=== PATIENT | female | born 1990 | race Hispanic/Latino ===

== ENCOUNTER 2022-01-03 11:05 | Outpatient (CLI) | payer OTHER ==
[2022-01-03 21:27] LABS: SARS-CoV-2 PCR by NAA Not Detected (NotDetected)
== END 2022-01-03 11:06 | disposition home or self-care (01) ==
LOC: CSHLAB 11:05
PROVIDERS: ATTEND Advanced Practice Midwife
DX: Z20.822 Contact with and (suspected) exposure to COVID-19 (principal)
CPT/HCPCS: U0003; U0005

== ENCOUNTER 2022-01-04 12:37 | Inpatient (IN) | payer OTHER ==
[~2022-01-04 12:37] MED LIST: Bupivacaine 0.25% HCL 30 ML VIAL ONE; ePHEDrine Sulfate 50 MG/10 ML VIAL ONE
[2022-01-04] MEDS ORDERED: hydrALAZINE 20 MG/ML VIAL SLOW IVP PRN ×2 (12:55→12:56)
[2022-01-04] MEDS ORDERED: Lidocaine 1% (PF) 30 ML VIAL SC PRN ×2 (12:55→12:56)
[2022-01-04] MEDS ORDERED: Ondansetron PF 4 MG/2 ML Vial IVP PRN ×2 (12:55→12:56)
[2022-01-04] MEDS ORDERED: Promethazine HCl 25 MG/ML VIAL IM PRN ×2 (12:55→12:56)
[2022-01-04] MEDS ORDERED: HYDROcodone/Acetaminophen 5/325 mg Tablet PO PRN ×2 (12:56)
[2022-01-04] MEDS ORDERED: Acetaminophen 500 MG TAB PO PRN (12:56)
[2022-01-04] MEDS ORDERED: Carboprost 250 MCG/ML AMP IM PRN (12:56)
[2022-01-04] MEDS ORDERED: Methylergonovine 0.2 MG/ML VIAL IM PRN (12:56)
[2022-01-04] MEDS ORDERED: Misoprostol 200 MCG TAB PR PRN (12:56)
[2022-01-04] MEDS ORDERED: Diphenoxylate HCl/Atropine Tablet PO PRN (12:56)
[2022-01-04] MEDS ORDERED: Butorphanol Tartrate 1 MG/ML VIAL SLOW IVP PRN (12:56)
[2022-01-04] MEDS ORDERED: Ibuprofen 800 MG TAB PO PRN (12:56)
[2022-01-04] MEDS ORDERED: Penicillin G Potassium 5 MILL.UNITS in Sodium Chloride 0.9% 100 ML IVPB SCH (13:00)
[2022-01-04] MEDS ORDERED: NS w/ Oxytocin 30 units 500 ML IV SCH ×3 (13:00)
[2022-01-04] MEDS ORDERED: Penicillin G Potassium 5 MILL.UNITS VIAL ONE (13:16)
[2022-01-04] MEDS: Lactated Ringer's 1,000 ML IV SCH (13:30)
[2022-01-04] MEDS: Misoprostol 100 MCG TAB VAG SCH (13:31)
[2022-01-04 13:50] VITALS: BMI 32.1
[2022-01-04 14:10] LABS: Hemoglobin 9.4 g/dL (12.0-15.5); Mean Corpuscular HGB CONC 31.9 g/dL (32.0-36.0); Mean Corpuscular Hemoglobin 24.9 pg (27.0-33.0); Mean Corpuscular Volume 78.2 fl (81.6-98.3); Mean Platelet Volume 12.4 fl (7.4-10.4); Platelet Count 261 10x3/uL (150-450); RBC Distribution Width 13.9 % (11.5-14.5); Red Blood Cell (RBC) Count 3.77 10x6/uL (3.90-5.03); White Blood Cell (WBC) Count 6.1 10x3/uL (3.5-10.5)
[2022-01-04] MEDS ORDERED: Dextrose 5% in Water 1,000 ML IV PRN (14:41)
[2022-01-04] MEDS ORDERED: Dextrose 50% Abboject 50 ML SYRINGE SLOW IVP PRN (14:41)
[2022-01-04] MEDS ORDERED: HumaLOG 300 UNITS/3 ML VIAL SC PRN (14:41)
[2022-01-04 14:45] LABS: Syphilis Antibody Nonreactive (Nonreactive); Syphilis Antibody Index 0.04 S/CO (<1.00 Non-Reactive)
[2022-01-04 14:46] LABS: Hep B Surf Ag Non-Reactive S/CO (NonReactive)
[2022-01-04 14:53] LABS: HBSAg Index 0.15 S/CO (0-0.99)
[2022-01-04] MEDS: Penicillin G 2.5 MILL.units 2.5 MILL.UNITS in Premix Bag 1 BAG IVPB SCH ×3 (15:07→22:11)
[2022-01-05] MEDS: Terbutaline Sulfate 1 MG/ML VIAL ONE ×2 (00:41→01:56)
[2022-01-05] MEDS ORDERED: Fentanyl 2 mcg/Bup 0.1% Cadd 100 ML ONE ×2 (01:50→11:47)
[2022-01-05] MEDS: Lactated Ringer's 1,000 ML IV SCH (01:58)
[2022-01-05] MEDS: Penicillin G 2.5 MILL.units 2.5 MILL.UNITS in Premix Bag 1 BAG IVPB SCH ×3 (03:08→12:33)
[2022-01-05] MEDS ORDERED: Misoprostol 200 MCG TAB ONE (16:46)
[2022-01-05] MEDS ORDERED: Methylergonovine 0.2 MG/ML VIAL ONE (16:46)
[2022-01-05] MEDS ORDERED: Carboprost 250 MCG/ML AMP ONE (16:47)
[2022-01-05] MEDS: Tranexamic Acid 1,000 MG/10 ML VIAL ONE (17:01)
[2022-01-05] MEDS ORDERED: Diphenoxylate HCl/Atropine Tablet PO PRN (17:12)
[2022-01-05 17:33] LABS: Hemoglobin 9.6 g/dL (12.0-15.5); Mean Corpuscular HGB CONC 31.5 g/dL (32.0-36.0); Mean Corpuscular Hemoglobin 25.1 pg (27.0-33.0); Mean Corpuscular Volume 79.8 fl (81.6-98.3); Mean Platelet Volume 11.8 fl (7.4-10.4); Platelet Count 239 10x3/uL (150-450); Red Blood Cell (RBC) Count 3.82 10x6/uL (3.90-5.03); White Blood Cell (WBC) Count 12.4 10x3/uL (3.5-10.5)
[2022-01-05 18:13] LABS: D-Dimer Test 2.85 mg/L FEU (0.19-0.50); INR-International Normal Ratio 0.9; PTT 26.3 sec (22.0-33.0); Prothrombin Time 9.8 sec (9.5-12.1)
[2022-01-05] MEDS ORDERED: Lanolin Ointment 7 GM TUBE TOP PRN (20:10)
[2022-01-05] MEDS ORDERED: Misoprostol 200 MCG TAB VAG PRN (20:10)
[2022-01-05] MEDS ORDERED: Milk Of Magnesia 30 ML UDCUP PO PRN (20:10)
[2022-01-05] MEDS ORDERED: Bisacodyl 10 MG SUPP PR PRN (20:10)
[2022-01-05] MEDS ORDERED: HYDROcodone/Acetaminophen 5/325 mg Tablet PO PRN ×2 (20:10)
[2022-01-05] MEDS ORDERED: Boostrix 0.5 ML (Tdap) VIAL IM ONE (20:10)
[2022-01-05] MEDS ORDERED: hydrALAZINE 20 MG/ML VIAL SLOW IVP PRN (20:10)
[2022-01-05] MEDS ORDERED: Ferrous Sulfate 325 MG TAB PO SCH (20:15)
[2022-01-05] MEDS ORDERED: NS w/ Oxytocin 30 units 500 ML IV SCH (21:00)
[2022-01-05] MEDS: Docusate 100 MG CAP PO SCH (21:48)
[2022-01-05] MEDS: Ibuprofen 800 MG TAB PO SCH (21:48)
[2022-01-05] MEDS: Ampicillin/Sulbactam 3 GM in Sodium Chloride 0.9% 100 ML IVPB SCH (21:54)
[2022-01-06 03:52] LABS: #Basophils 0.1 10x3/uL (0.0-0.2); #Eosinphils 0.1 10x3/uL (0.0-0.5); #Monocytes 0.9 10x3/uL (0.0-1.1); %Basophils 0.4 % (0.0-2.0); %Eosinophils 0.9 % (0.0-6.0); %Lymphocytes 18.6 % (18.0-47.0); %Monocytes 7.2 % (0.0-10.0); %Neutrophils 72.3 % (40.0-75.0); Hemoglobin 8.3 g/dL (12.0-15.5); Mean Corpuscular HGB CONC 32.2 g/dL (32.0-36.0); Mean Corpuscular Hemoglobin 24.6 pg (27.0-33.0); Mean Corpuscular Volume 76.3 fl (81.6-98.3); Mean Platelet Volume 12.2 fl (7.4-10.4); Platelet Count 251 10x3/uL (150-450); Red Blood Cell (RBC) Count 3.38 10x6/uL (3.90-5.03); White Blood Cell (WBC) Count 12.5 10x3/uL (3.5-10.5)
[2022-01-06] MEDS: Ampicillin/Sulbactam 3 GM in Sodium Chloride 0.9% 100 ML IVPB SCH ×2 (05:52→13:55)
[2022-01-06] MEDS: Ibuprofen 800 MG TAB PO SCH ×2 (05:52→13:54)
[2022-01-06] MEDS: Misoprostol 100 MCG TAB VAG SCH ×2 (07:21→07:23)
[2022-01-06] MEDS: Penicillin G 2.5 MILL.units 2.5 MILL.UNITS in Premix Bag 1 BAG IVPB SCH (07:22)
[2022-01-06] MEDS: Lactated Ringer's 1,000 ML IV SCH (07:22)
[2022-01-06] MEDS: Docusate 100 MG CAP PO SCH (08:53)
[2022-01-06] MEDS: Ferrous Sulfate 325 MG TAB PO SCH ×2 (08:53→18:03)
[2022-01-06 12:27] VITALS: BP 99/57; TEMP 98
== END 2022-01-06 19:45 | disposition home or self-care (01) | DRG 805 ==
LOC: CSHLD 12:37 → CSHPP 01-05 19:35
PROVIDERS: ADMIT Obstetrics & Gynecology; ATTEND Obstetrics & Gynecology
PROC: 10E0XZZ Delivery of Products of Conception, External Approach (ICD-10-PCS; principal; 2022-01-05)
PROC: 10907ZC Drainage of Amniotic Fluid, Therapeutic from Products of Conception, Via Natural or Artificial Opening (ICD-10-PCS; 2022-01-05)
PROC: 3E033VJ Introduction of Other Hormone into Peripheral Vein, Percutaneous Approach (ICD-10-PCS; 2022-01-05)
PROC: 0HQ9XZZ Repair Perineum Skin, External Approach (ICD-10-PCS; 2022-01-05)
DX: O24.424 Gestational diabetes mellitus in childbirth, insulin controlled (principal); O99.42 Diseases of the circulatory system complicating childbirth; Z37.0 Single live birth; K83.1 Obstruction of bile duct; O26.62 Liver and biliary tract disorders in childbirth; O70.0 First degree perineal laceration during delivery; O69.81X0 Labor and delivery complicated by cord around neck, without compression, not applicable or unspecified; O99.824 Streptococcus B carrier state complicating childbirth; Z3A.37 37 weeks gestation of pregnancy; Z79.4 Long term (current) use of insulin; Z79.899 Other long term (current) drug therapy; Z90.49 Acquired absence of other specified parts of digestive tract
CPT/HCPCS: 36415; 36416; 51702; 85025; 85027; 85049; 85300; 85362; 85379; 85384; 85610; 85730; 86780; 86850; 86900; 86901; 87340; 88307; J0295; J2210; J2540; J2590; J3105; J3490; J7120; S0020